=== PATIENT | male | born 1995 | race African-American/Black ===

== ENCOUNTER 2019-01-29 15:47 | Emergency (ER) | payer OTHER ==
[~2019-01-29] VITALS: Ht 160 cm; Wt 56.7 kg
[~2019-01-29 15:47] MED LIST: PREDNISONE 20 M20 MG PO; PROVENTIL HFA6.7 G1 INH
[2019-01-29] MEDS ORDERED: PREDNISONE 20 M20 MG PO (17:23)
[2019-01-29] MEDS ORDERED: PROAIR HFA8.5 GM INH (17:23)
[2019-01-29] MEDS ORDERED: TESSALON PERLE100 MG PO (17:23)
[2019-01-29] MEDS ORDERED: SYMBICORT160 MCG/4. INH (17:26)
[2019-01-29 17:28] VITALS: BP 116/64
[2019-01-29] MEDS ORDERED: ALBUTEROL2.5 MG/31 INH (17:28)
== END 2019-01-29 17:32 | disposition home or self-care (01) ==
LOC: ER 15:47
DX: J45.909 Unspecified asthma, uncomplicated (principal); F17.210 Nicotine dependence, cigarettes, uncomplicated

== ENCOUNTER 2019-05-15 19:58 | Emergency (ER) | payer OTHER ==
[~2019-05-15] VITALS: Ht 160 cm; Wt 56.7 kg
[~2019-05-15 19:58] MED LIST changes: +ALBUTEROL2.5 MG/31 INH; +PROAIR HFA8.5 GM INH; +SYMBICORT160 MCG/4. INH; +TESSALON PERLE100 MG PO
[2019-05-15] MEDS ORDERED: IBUPROFEN 600600 M1 PO (20:48)
[2019-05-15] MEDS ORDERED: AMOXICILLIN500 M1 PO (20:48)
== END 2019-05-15 21:03 | disposition home or self-care (01) ==
LOC: ER 19:58
DX: J02.9 Acute pharyngitis, unspecified (principal); F17.210 Nicotine dependence, cigarettes, uncomplicated; J45.909 Unspecified asthma, uncomplicated

== ENCOUNTER 2019-10-27 06:15 | Emergency (ER) | payer OTHER ==
[~2019-10-27] VITALS: Ht 160 cm; Wt 59.0 kg
[~2019-10-27 06:15] MED LIST changes: +AMOXICILLIN500 M1 PO; +IBUPROFEN 600600 M1 PO
[2019-10-27 06:17] VITALS: BP 132/96
== END 2019-10-27 07:51 | disposition home or self-care (01) ==
LOC: ER 06:15
DX: T16.2XXA Foreign body in left ear, initial encounter (principal); J45.909 Unspecified asthma, uncomplicated; F17.210 Nicotine dependence, cigarettes, uncomplicated; Z79.899 Other long term (current) drug therapy; X58.XXXA Exposure to other specified factors, initial encounter; Y93.89 Activity, other specified; Y92.89 Other specified places as the place of occurrence of the external cause; Y99.8 Other external cause status

== ENCOUNTER 2020-05-16 11:29 | Emergency (ER) | payer OTHER ==
[~2020-05-16] VITALS: Ht 160 cm; Wt 59.0 kg
[2020-05-16] MEDS ORDERED: NAPROSYN500 MG PO (12:44)
[2020-05-16] MEDS ORDERED: FLEXERIL PO (12:44)
[2020-05-16 13:07] VITALS: BP 116/82
== END 2020-05-16 13:08 | disposition home or self-care (01) ==
LOC: ER 11:29
DX: S16.1XXA Strain of muscle, fascia and tendon at neck level, initial encounter (principal); M25.512 Pain in left shoulder; J45.909 Unspecified asthma, uncomplicated; F17.210 Nicotine dependence, cigarettes, uncomplicated; Z79.1 Long term (current) use of non-steroidal anti-inflammatories (NSAID); Z79.899 Other long term (current) drug therapy; V49.9XXA Car occupant (driver) (passenger) injured in unspecified traffic accident, initial encounter; Y93.89 Activity, other specified; Y92.89 Other specified places as the place of occurrence of the external cause; Y99.8 Other external cause status